=== PATIENT | male | born 1945 | race Caucasian/White ===

== ENCOUNTER → 2016-08-14 | Outpatient (CLI) | payer MEDICARE, BC ==
[~2016-08-14] MED LIST: ASPIRIN EC81 MG PO; IMDUR ER TAB 3030 MG PO; LANTUS SOL100 UNIT/1 SC; LEVAQUIN500 MG PO; LEVOTHYROXINE25 MCG PO; LORAZEPAM1 MG PO; METOPROLOL SUCC25 MG PO; TACROLIMUS1 MG PO; TAMSULOSIN HCL0.4 MG PO; VITAMIN D250000 UNIT PO; ZANTAC 150 MG150 MG PO
== END ==
LOC: US 08-08 14:45
DX: I83.813 Varicose veins of bilateral lower extremities with pain (principal); M79.604 Pain in right leg; M79.605 Pain in left leg
CPT/HCPCS: 93925